=== PATIENT | female | born 1945 | race Caucasian/White ===

== ENCOUNTER → 2018-02-14 | Outpatient (CLI) | payer MEDICARE, OTHER ==
[~2018-02-14] MED LIST: ASPI81CH PO; BENA20 PO; CARV6.25 PO; FERR160 PO; FURO40 PO; GABA600 PO; HYDACE7.5 PO; HYDPAM25 PO; MOME.1TO TOP; NAPR500ERA PO; NITR.6SL SL; OMEP20ER PO; TEMA30 PO
== END | disposition home or self-care (01) ==
LOC: LAB SHORT 15:00 → LAB 15:00
DX: I83.12 Varicose veins of left lower extremity with inflammation (principal)
CPT/HCPCS: 87070; 87077; 87147; 87186; 87205

== ENCOUNTER 2018-05-13 02:41 | Emergency (ER) | payer MEDICARE, OTHER ==
[~2018-05-13] VITALS: Ht 152.4 cm; Wt 129.3 kg
== END 2018-05-13 06:52 | disposition home or self-care (01) ==
LOC: ER 02:41
DX: S01.01XA Laceration without foreign body of scalp, initial encounter (principal); W01.198A Fall on same level from slipping, tripping and stumbling with subsequent striking against other object, initial encounter; Z88.5 Allergy status to narcotic agent; Z79.899 Other long term (current) drug therapy; Z79.891 Long term (current) use of opiate analgesic
CPT/HCPCS: 12002; 70450; 90471; 90714; 99284-25

== ENCOUNTER 2018-08-29 17:12 | Emergency (ER) | payer MEDICARE, OTHER ==
[~2018-08-29] VITALS: Ht 152.4 cm; Wt 117.9 kg
[2018-08-29 18:00] LABS: BASOPHILS ABSOLUTE AUTO 0.04 K/mm3 (0.00-0.23); BASOPHILS PERCENT AUTO 0 % (0-2); EOSINOPHILS ABSOLUTE AUTO 0.08 K/mm3 (0.00-0.68); EOSINOPHILS PERCENT AUTO 1 % (0-6); Hematocrit 37.1 % (33.0-51.0); Hemoglobin 11.4 g/dL (11.5-16.0); IMMATURE GRAN ABSOLUTE AUTO 0.04 K/mm3 (0.00-0.10); IMMATURE GRAN PERCENT AUTO 0 % (0-1); LYMPHOCYTES ABSOLUTE AUTO 1.59 K/mm3 (0.84-5.20); LYMPHOCYTES PERCENT AUTO 17 % (21-46); MONOCYTES ABSOLUTE AUTO 0.66 K/mm3 (0.16-1.47); MONOCYTES PERCENT AUTO 7 % (4-13); Mean Corpuscular HGB 26.6 pg (26.0-34.0); Mean Corpuscular HGB Conc 30.7 g/dL (31.5-36.5); Mean Corpuscular Volume 87 fL (80-100); NEUTROPHILS ABSOLUTE AUTO 7.23 K/mm3 (1.96-9.15); NEUTROPHILS PERCENT AUTO 75 % (41-73); Platelet Count 342 K/mm3 (150-400); RDW Coefficient Variation 15.5 % (11.7-14.2); RDW Standard Deviation 49.1 fL (35.1-46.3); Red Blood Cell Count 4.29 M/mm3 (3.80-5.20); White Blood Cell Count 9.64 K/mm3 (4.00-11.30)
[2018-08-29 18:20] LABS: Troponin I <0.015 ng/mL (0.000-0.040)
[2018-08-29 18:21] LABS: Alanine Aminotransfer (ALT/SGP 35 U/L (12-78); Albumin/Globulin Ratio 0.6 (0.8-1.8); Alk Phos 134 U/L (50-136); Anion Gap 4 mmol/L (6-16); Aspartate Aminotrans (AST/SGOT 43 U/L (12-37); Bilirubin, Total 0.6 mg/dL (0.1-1.0); Blood Urea Nitrogen 18 mg/dL (8-24); Bun/Creatinine Ratio 16.7 (12.0-20.0); CO2, Blood 34 mmol/L (21-32); Calcium, Blood 8.7 mg/dL (8.5-10.1); Chloride, Blood 99 mmol/L (98-108); Creatinine, Blood 1.08 mg/dL (0.40-1.00); Glomerular Filtration Rate 53 (60-); Glucose, Blood 159 mg/dL (70-99); Sodium, Blood 137 mmol/L (136-145)
[2018-08-29] MEDS ORDERED: TORS10 (19:01)
[2018-08-29] MEDS ORDERED: BENZ100A PO (19:41)
== END 2018-08-29 20:07 | disposition home or self-care (01) ==
LOC: ER 17:12
PROVIDERS: Physician Assistant
DX: R07.9 Chest pain, unspecified (principal); R05 Cough; Z88.5 Allergy status to narcotic agent; Z79.899 Other long term (current) drug therapy
CPT/HCPCS: 36415; 71046; 80053; 83880; 84484; 85025; 93005; 93010; 96374; 99285-25; J1885

== ENCOUNTER → 2019-05-01 | Outpatient (CLI) | payer MEDICARE, OTHER, SELFPAY ==
[~2019-05-01] MED LIST changes: +BENZ100A PO; +TORS10
== END | disposition home or self-care (01) ==
LOC: LAB SHORT 14:30 → LAB 14:30
DX: L03.116 Cellulitis of left lower limb (principal)
CPT/HCPCS: 87070; 87205

== ENCOUNTER 2019-07-22 16:38 | Inpatient (IN) | payer MEDICARE, OTHER ==
[~2019-07-22] VITALS: Ht 149.9 cm; Wt 102.0 kg
[2019-07-22 18:01] LABS: BASOPHILS ABSOLUTE AUTO 0.05 K/mm3 (0.00-0.23); BASOPHILS PERCENT AUTO 0 % (0-2); EOSINOPHILS ABSOLUTE AUTO 0.05 K/mm3 (0.00-0.68); EOSINOPHILS PERCENT AUTO 0 % (0-6); Hematocrit 41.1 % (33.0-51.0); Hemoglobin 13.1 g/dL (11.5-16.0); IMMATURE GRAN ABSOLUTE AUTO 0.11 K/mm3 (0.00-0.10); IMMATURE GRAN PERCENT AUTO 1 % (0-1); LYMPHOCYTES ABSOLUTE AUTO 1.93 K/mm3 (0.84-5.20); LYMPHOCYTES PERCENT AUTO 10 % (21-46); MONOCYTES ABSOLUTE AUTO 1.05 K/mm3 (0.16-1.47); MONOCYTES PERCENT AUTO 5 % (4-13); Mean Corpuscular HGB Conc 31.9 g/dL (31.5-36.5); Mean Corpuscular Volume 82 fL (80-100); Mean Platelet Volume 9.8 fL (9.1-12.4); NEUTROPHILS ABSOLUTE AUTO 16.62 K/mm3 (1.96-9.15); NEUTROPHILS PERCENT AUTO 84 % (41-73); Platelet Count 548 K/mm3 (150-400); RDW Coefficient Variation 17.2 % (11.7-14.2); RDW Standard Deviation 49.3 fL (35.1-46.3); Red Blood Cell Count 5.03 M/mm3 (3.80-5.20); White Blood Cell Count 19.81 K/mm3 (4.00-11.30)
[2019-07-22 18:22] LABS: Alanine Aminotransfer (ALT/SGP 13 U/L (12-78); Albumin, Blood 3.1 g/dL (3.4-5.0); Albumin/Globulin Ratio 0.5 (0.8-1.8); Alk Phos 107 U/L (50-136); Anion Gap 10 mmol/L (6-16); Aspartate Aminotrans (AST/SGOT 8 U/L (12-37); Bilirubin, Total 0.8 mg/dL (0.1-1.0); Blood Urea Nitrogen 130 mg/dL (8-24); Bun/Creatinine Ratio 47.3 (12.0-20.0); CO2, Blood 19 mmol/L (21-32); Calcium, Blood 9.7 mg/dL (8.5-10.1); Chloride, Blood 98 mmol/L (98-108); Creatinine, Blood 2.75 mg/dL (0.40-1.00); Globulin, Blood 5.9 g/dL (2.2-4.0); Glomerular Filtration Rate 18 (60-); Glucose, Blood 161 mg/dL (70-99); Potassium, Blood 5.3 mmol/L (3.5-5.5); Sodium, Blood 127 mmol/L (136-145); Troponin I <0.015 ng/mL (0.000-0.040)
[2019-07-22] MEDS ORDERED: HYDROCODONE-AC1 EAC1 PO (22:26)
[2019-07-22] MEDS ORDERED: HYDHCL25 PO (22:26)
[2019-07-22] MEDS ORDERED: Bumetanide2 MG PO (22:26)
[2019-07-23 00:09] LABS: Source, Urine Clean Catch
[2019-07-23 00:18] LABS: Appearance, Urine Turbid (Clear); Bilirubin, Urine Neg (Neg); Blood, Urine 3+ (Neg); Color, Urine Yellow (P-Yellow); Glucose Qualitative, Urine Neg (Neg); Ketones, Urine 1+ (Neg); Leukocyte Esterase, Urine 3+ (Neg); Nitrite, Urine Neg (Neg); Protein, Urine 2+ (Neg); Urobilinogen, Urine NORM (Normal)
[2019-07-23 00:31] LABS: Bacteria Many /hpf; Red Blood Cells, Urine 0-2 /hpf (0-2); Squamous Epithelial Cells Not Seen /hpf (Few); White Blood Cells, Urine TNTC /hpf (0-5)
[2019-07-23] MEDS ORDERED: ELIQUIS5 MG PO (01:44)
[2019-07-23] MEDS ORDERED: CARV6.25 PO (01:44)
--- NOTE | 2019-07-23 01:57 | NUR ---
REPORT RECIEVED FROM CHEN JOHNSON RN AT 0145 AND AWAITING PT T/F TO ROOM 308.
--- NOTE | 2019-07-23 02:10 | NUR ---
PT T/F TO ROOM 308 AT 0200 VIA [employer]. SHE'S A/OX4 AND WAS ORIENTED TO ROOM AND CALL SYSTEM. PT ADMITTED FOR BLE CELLULITIS R/T CHRONIC LYMPHEDEMA. SKIN CARE PROVIDED TO LEGS, PANNUS, DYLAN AREA, BUTTOCKS AND SKIN FOLDS. PHOTOS COMPLETED OF ALL SKIN ISSUES. PT CONT'S TO C/O BLE PAIN, WILL MEDICATE PRN. OSEGUERA WAS PLACED IN ER AND IS PATENT/DRAINING. IV ABX ARE INFUSING. WCTM AND MEDICATE PRN.
[2019-07-23] MEDS ORDERED: POTA10T PO (02:46)
[2019-07-23 04:56] LABS: BASOPHILS ABSOLUTE AUTO 0.04 K/mm3 (0.00-0.23); BASOPHILS PERCENT AUTO 0 % (0-2); EOSINOPHILS ABSOLUTE AUTO 0.05 K/mm3 (0.00-0.68); EOSINOPHILS PERCENT AUTO 0 % (0-6); Hematocrit 38.5 % (33.0-51.0); Hemoglobin 12.2 g/dL (11.5-16.0); IMMATURE GRAN ABSOLUTE AUTO 0.13 K/mm3 (0.00-0.10); IMMATURE GRAN PERCENT AUTO 1 % (0-1); LYMPHOCYTES ABSOLUTE AUTO 1.42 K/mm3 (0.84-5.20); LYMPHOCYTES PERCENT AUTO 7 % (21-46); MONOCYTES ABSOLUTE AUTO 1.09 K/mm3 (0.16-1.47); MONOCYTES PERCENT AUTO 6 % (4-13); Mean Corpuscular HGB Conc 31.7 g/dL (31.5-36.5); Mean Corpuscular Volume 82 fL (80-100); Mean Platelet Volume 9.8 fL (9.1-12.4); NEUTROPHILS ABSOLUTE AUTO 16.82 K/mm3 (1.96-9.15); NEUTROPHILS PERCENT AUTO 86 % (41-73); Platelet Count 466 K/mm3 (150-400); RDW Coefficient Variation 17.1 % (11.7-14.2); RDW Standard Deviation 48.6 fL (35.1-46.3); White Blood Cell Count 19.55 K/mm3 (4.00-11.30)
[2019-07-23 05:00] LABS: Hematocrit 38.7 % (33.0-51.0); Hemoglobin 12.2 g/dL (11.5-16.0)
[2019-07-23 05:18] LABS: Bun/Creatinine Ratio 46.8 (12.0-20.0); Calcium, Blood 9.3 mg/dL (8.5-10.1); Creatinine, Blood 2.8 mg/dL (0.40-1.00); Potassium, Blood 4.6 mmol/L (3.5-5.5)
[2019-07-23 05:27] LABS: Magnesium, Blood 2.2 mg/dL (1.6-2.4)
[2019-07-23 05:31] LABS: Albumin, Blood 2.8 g/dL (3.4-5.0); Anion Gap 13 mmol/L (6-16); Blood Urea Nitrogen 130 mg/dL (8-24); Bun/Creatinine Ratio 46.4 (12.0-20.0); CO2, Blood 19 mmol/L (21-32); Calcium, Blood 9.4 mg/dL (8.5-10.1); Chloride, Blood 100 mmol/L (98-108); Glomerular Filtration Rate 18 (60-); Glucose, Blood 143 mg/dL (70-99); Phosphorus, Blood 5.7 mg/dL (2.5-4.9); Potassium, Blood 4.6 mmol/L (3.5-5.5); Sodium, Blood 132 mmol/L (136-145)
--- NOTE | 2019-07-23 06:19 | NUR ---
PT T/F TO ROOM 308 AT 0200 VIA [employer]. SHE'S A/OX4 AND WAS ORIENTED TO ROOM AND CALL SYSTEM. PT ADMITTED FOR BLE CELLULITIS R/T CHRONIC LYMPHEDEMA. SKIN CARE PROVIDED TO LEGS, PANNUS, DYLAN AREA, BUTTOCKS AND SKIN FOLDS. PHOTOS COMPLETED OF ALL SKIN ISSUES. PT CONT'S TO C/O BLE PAIN, WILL MEDICATE PRN. OSEGUERA WAS PLACED IN ER AND IS PATENT/DRAINING. IV ABX ARE INFUSING. WCTM AND MEDICATE PRN.
[2019-07-23] MEDS ORDERED: METO5 PO (06:42)
[2019-07-23] MEDS ORDERED: BENZ100A PO (06:43)
[2019-07-23] MEDS ORDERED: BETA.05TCA TOP (06:45)
[2019-07-23] MEDS ORDERED: FOLI1 PO (06:45)
--- NOTE | 2019-07-23 06:45 | NUR ---
SUMMARY: A/OX4, CALLS APPROPRIATELY AND SPECIFIES NEEDS. BLE'S ARE RED, HOT, PEELING, WEAPING, SCABBED AND GROSSLY EDEMATOUS FROM CELLULITIS. LEGS WERE ELEVATED W/DRY CHUCKS IN PLACE BUT THEY REMAIN VERY PAINFUL DESPITE BEING MEDICATED W/TYLENOL, FENTANYL AND NORCO PRN. IV ABX RECIEVED THEN SL. OSEGUERA WAS PLACED IN ER AND IS PATENT/DRAINING TURBID OP, UTI LIKELY. IS CONSULTING W/PLANS TO [facility]. RENAL U/S RX'D AND SCHEDULED BTWN [id number]. PT WAS REPOSITIONED FOR FURTHER SBD PREVENTION. SHE HAS EXCORIATION, REDNESS AND BROKEN SKIN TO BUTTOCKS AND SKIN CREASES. MEPILEX APPLIED. SHE ALSO HAS YEAST TO PANNUS, GROIN AND DYLAN AREA. SKIN WAS CLEANSED AND DOCUMENTED, SEE PHOTOS FOR DETAILS. PT REPORT NUMBNESS TO FINGERS BUT SENSATION AND CAP REFILL WNL TO BLE'S. NO ACUTE CHANGES, VSS/AFEBRILE. WCTM AND REPORT TO DAY RN.
--- NOTE | 2019-07-23 14:55 | NUR ---
PT GAVE CONSENT FOR STUDENT NURSE TO CARE FOR HER ON 07/24/19 [id number]
--- NOTE | 2019-07-23 17:44 | NUR ---
SHIFT SUMMARY PT REPORTIN PAIN ALMOST CONSTANTLY WHEN AWAKE. REPORTS BACK OF LEGS EXTREMELY PAINFUL ESPECIALLY LAYING AGAINST THE BED. SEROUS DRAINAGE FROM LEGS. REDNESS AND WARMTH TO BOTH LEGS WITH R WORSE THAN L. TRIED TO SIT ON SIDE OF BED THIS MORNING WITH TOO MUCH PAIN. AT BEDSIDE THROUG AFTERNOON. POWDER APPLIED TO YEAST UNDER PANNUS. DRESSING IN PLACE TO COCCYX.
--- NOTE | 2019-07-23 22:40 | NUR ---
PATIENT REPORTED BACK OF CALVES PAIN AND NORCO ONE TAB GIVEN PER EMAR. CALL LIGHT IN REACH.
--- NOTE | 2019-07-24 04:08 | NUR ---
SHIFT SUMMARY PATIENT HAD NO ACUTE CHANGES OBSERVED. AXOX 4 AND BEDFAST. FAMILY PRESENT AT SHIFT CHANGE. REPORTED PAIN IN BACK OF CALVES AND NORCO ONE TAB GIVEN PER EMAR. PATIENT ABLE TO GO BACK TO SLEEP. OSEGUERA PATENT AND DRAINIG. DENIES SOB AND N/V. PIV REMAINS INTACT. VSS/AFBERILE. CALL LIGHT IN REACH. BED IN LOWEST POSITION. WILL CONTINUE TO MONITOR UNTIL DAY SHIFT NURSE ASSUMES CARE.
[2019-07-24 06:54] LABS: Albumin, Blood 2.4 g/dL (3.4-5.0); Anion Gap 11 mmol/L (6-16); Blood Urea Nitrogen 119 mg/dL (8-24); Bun/Creatinine Ratio 50.6 (12.0-20.0); CO2, Blood 23 mmol/L (21-32); Calcium, Blood 8.8 mg/dL (8.5-10.1); Chloride, Blood 102 mmol/L (98-108); Creatinine, Blood 2.35 mg/dL (0.40-1.00); Glomerular Filtration Rate 21 (60-); Glucose, Blood 133 mg/dL (70-99); Magnesium, Blood 2.1 mg/dL (1.6-2.4); Phosphorus, Blood 4.9 mg/dL (2.5-4.9); Potassium, Blood 3.6 mmol/L (3.5-5.5); Sodium, Blood 136 mmol/L (136-145)
--- NOTE | 2019-07-24 08:40 | NUR ---
Patient gave this student permission for care on 07/25/19 at 8:10 am.
--- NOTE | 2019-07-24 19:15 | NUR ---
shift summary pt with her eyes closed most of the day. awakens easily and chats with staff. bed bath given this evening and pt became extremely painful and now requesting pain meds. family at bedside visiting. pt hasn't been tearful until this evening after bedbath. swelling decreasing in both legs. dr. brown hasn't been here to see pt yet. pt reports the bottom of her r foot is more painful today.
[2019-07-25 05:35] LABS: BASOPHILS ABSOLUTE AUTO 0.04 K/mm3 (0.00-0.23); BASOPHILS PERCENT AUTO 0 % (0-2); EOSINOPHILS ABSOLUTE AUTO 0.16 K/mm3 (0.00-0.68); EOSINOPHILS PERCENT AUTO 1 % (0-6); Hematocrit 36.7 % (33.0-51.0); Hemoglobin 11.7 g/dL (11.5-16.0); IMMATURE GRAN ABSOLUTE AUTO 0.07 K/mm3 (0.00-0.10); IMMATURE GRAN PERCENT AUTO 1 % (0-1); LYMPHOCYTES PERCENT AUTO 10 % (21-46); MONOCYTES PERCENT AUTO 7 % (4-13); Mean Corpuscular HGB 25.9 pg (26.0-34.0); Mean Corpuscular HGB Conc 31.9 g/dL (31.5-36.5); Mean Corpuscular Volume 81 fL (80-100); Mean Platelet Volume 9.8 fL (9.1-12.4); NEUTROPHILS ABSOLUTE AUTO 11.85 K/mm3 (1.96-9.15); NEUTROPHILS PERCENT AUTO 82 % (41-73); Platelet Count 374 K/mm3 (150-400); RDW Coefficient Variation 16.9 % (11.7-14.2); RDW Standard Deviation 48.7 fL (35.1-46.3); Red Blood Cell Count 4.52 M/mm3 (3.80-5.20); White Blood Cell Count 14.52 K/mm3 (4.00-11.30)
[2019-07-25 05:57] LABS: Albumin, Blood 2.3 g/dL (3.4-5.0); Anion Gap 10 mmol/L (6-16); Blood Urea Nitrogen 105 mg/dL (8-24); Bun/Creatinine Ratio 59.3 (12.0-20.0); CO2, Blood 24 mmol/L (21-32); Calcium, Blood 8.8 mg/dL (8.5-10.1); Chloride, Blood 102 mmol/L (98-108); Creatinine, Blood 1.77 mg/dL (0.40-1.00); Glomerular Filtration Rate 30 (60-); Glucose, Blood 176 mg/dL (70-99); Magnesium, Blood 1.9 mg/dL (1.6-2.4); Phosphorus, Blood 3.3 mg/dL (2.5-4.9); Sodium, Blood 136 mmol/L (136-145)
--- NOTE | 2019-07-25 06:33 | NUR ---
SHIFT SUMMARY PT IS A 74 Y/O FEMALE, ADMITTED FOR BLE CELLULITIS. SHE IS A&O X 4, AND BEDREST/WHEELCHAIR BOUND AT BASELINE. OSEGUERA CATHETER IS IN PLACE, PATENT AND DRAINING. VITAL SIGNS STABLE. SHE WAS MEDICATED TWICE FOR PAIN WITH PRN HYDROCODONE. NO COMPLAINTS OF NAUSEA OR SOB. PT WAS SEEN BY DR VILA DURING THE EVENING, WHO STATED HE WANTED TO DO FURTHER IMAGING STUDIES BEFORE PLANNING ANY SURGICAL INTERVENTIONS. NO ACUTE CHANGES IN PT CONDITION NOTED. WILL CONTINUE TO MONITOR AND TREAT PER EMAR UNTIL HAND OFF TO DAY SHIFT RN.
--- NOTE | 2019-07-25 18:43 | NUR ---
SHIFT SUMMARY MEDICATED FOR PAIN NEEDED. LE WOUNDS WRAPPED WITH NONADHESIVE DRESSING, KERLEX AND CATHY WRAP TO KEEP DRESSING ON. LE'S ELEVATED ON PILLOWS AND HEELS REAISED OFF BED. HEELS GETTING SOFT TO PALPATION AND PT COMPLAINING OF FOOT PAIN BUT PRIMARILY IN HEELS. PAIN STOPPED AFTER HEELS ELEVATED. FAMILY IN TO VISIT THIS EVENING. PT EATS ONLY MINIMAL AMOUNTS OF FOOD SERVED TO HER.
[2019-07-26 05:11] LABS: Hematocrit 33.7 % (33.0-51.0); Hemoglobin 10.7 g/dL (11.5-16.0)
[2019-07-26 05:39] LABS: Anion Gap 8 mmol/L (6-16); Blood Urea Nitrogen 86 mg/dL (8-24); Bun/Creatinine Ratio 59.7 (12.0-20.0); CO2, Blood 24 mmol/L (21-32); Calcium, Blood 8.4 mg/dL (8.5-10.1); Chloride, Blood 101 mmol/L (98-108); Creatinine, Blood 1.44 mg/dL (0.40-1.00); Glomerular Filtration Rate 38 (60-); Glucose, Blood 123 mg/dL (70-99); Magnesium, Blood 1.7 mg/dL (1.6-2.4); Potassium, Blood 3.9 mmol/L (3.5-5.5); Sodium, Blood 133 mmol/L (136-145)
[2019-07-26 05:40] LABS: Phosphorus, Blood 2.6 mg/dL (2.5-4.9)
--- NOTE | 2019-07-26 06:31 | NUR ---
SHIFT SUMMARY PT IS A 74 Y/O FEMALE, ADMITTED FOR BLE CELLULITIS. SHE IS A&O X 3, AND ON BEDREST, WHEELCHAIR BOUND AT BASELINE. PT REPORTED PAIN THROUGH THE NIGHT IN HER BACK AND LEGS, AND WAS MEDICATED TWICE WITH PRN HYDROCODONE. NO COMPLAITNS OF NAUSEA OR SOB. VITAL SIGNS STABLE. PER DR MENDOZA, PT HAS BEEN PUT ON A 1L FLUID RESTRICTION. NO ACUTE CHANGES IN PT CONDITION NOTED. WILL CONTINUE TO MONITOR AND TREAT PER EMAR UNTIL HAND OFF TO DAY SHIFT RN.
--- NOTE | 2019-07-26 10:07 | NUR ---
pain went up rather than down due to being moved in bed to remove bp and change dressings on coccyx
[2019-07-26] MEDS ORDERED: ACET325 PO (12:35)
[2019-07-26] MEDS ORDERED: DOCU100 PO (12:36)
[2019-07-26] MEDS ORDERED: Vsl#3 Capsule1 EACH PO (12:37)
[2019-07-26] MEDS ORDERED: Pedi-Dri 100,0060 GM TOP (12:38)
[2019-07-26] MEDS ORDERED: SENN187 PO (12:39)
[2019-07-26] MEDS ORDERED: SPIR25 PO (12:39)
[2019-07-26] MEDS ORDERED: CEPH250A PO (12:40)
--- NOTE | 2019-07-26 15:34 | NUR ---
A+O, CALLED REPORT TO TU APONTE, REVIEWED MEDICATION AND DISCHARGE INSTRUCTIONS WITH PT, ESCORTED OUT ON [facility] BY MEDICAL TRANSPORT, FAMILY ACCOMPANING
== END 2019-07-26 15:32 | DRG 603 ==
LOC: ER 16:38 → MEDS 07-23 01:13 → ERHOLD 07-23 01:13 → MEDS 07-23 01:59
PROVIDERS: Internal Medicine; Internal Medicine Nephrology; Nurse Practitioner Acute Care; Physician Assistant; ADMIT Internal Medicine
DX: L03.115 Cellulitis of right lower limb (principal); B37.89 Other sites of candidiasis; N17.9 Acute kidney failure, unspecified; E87.1 Hypo-osmolality and hyponatremia; Z68.43 Body mass index [BMI] 50.0-59.9, adult; I82.4Z1 Acute embolism and thrombosis of unspecified deep veins of right distal lower extremity; I82.431 Acute embolism and thrombosis of right popliteal vein; N25.81 Secondary hyperparathyroidism of renal origin; N39.0 Urinary tract infection, site not specified; I12.9 Hypertensive chronic kidney disease with stage 1 through stage 4 chronic kidney disease, or unspecified chronic kidney disease; E11.22 Type 2 diabetes mellitus with diabetic chronic kidney disease; N18.3 Chronic kidney disease, stage 3 (moderate); Z86.718 Personal history of other venous thrombosis and embolism; G89.29 Other chronic pain; K21.9 Gastro-esophageal reflux disease without esophagitis; Z79.01 Long term (current) use of anticoagulants; E66.01 Morbid (severe) obesity due to excess calories; L03.116 Cellulitis of left lower limb; I89.0 Lymphedema, not elsewhere classified; M19.90 Unspecified osteoarthritis, unspecified site; Z99.3 Dependence on wheelchair; I87.2 Venous insufficiency (chronic) (peripheral); B96.20 Unspecified Escherichia coli [E. coli] as the cause of diseases classified elsewhere; E87.70 Fluid overload, unspecified; E83.39 Other disorders of phosphorus metabolism; E88.09 Other disorders of plasma-protein metabolism, not elsewhere classified; Z96.641 Presence of right artificial hip joint; D64.9 Anemia, unspecified; E87.6 Hypokalemia
CPT/HCPCS: 36415; 51702; 76770; 80048; 80053; 80069; 81001; 83605; 83735; 83880; 84484; 85014; 85018; 85025; 87040; 87077; 87086; 87186; 93005; 93010; 93970; 96365-59; 96367-59; 96375-59; 96376-59; 97110; 97162; 97167; 99285-25; A9270; A9270-GY; J0690; J0692; J2405; J2543; J3010; J3370; J7050

== ENCOUNTER → 2019-11-27 | Outpatient (CLI) | payer MEDICARE, OTHER ==
[~2019-11-27] MED LIST changes: +ACET325 PO; +BETA.05TCA TOP; +Bumetanide2 MG PO; +CEPH250A PO; +CIPR500 PO; +DOCU100 PO; +ELIQUIS5 MG PO; +FOLI1 PO; +HYDHCL25 PO; +HYDROCODONE-AC1 EAC8 PO; +HYDROXYZINE PAM25 MG PO; +METO5 PO; +POTA10T PO; +PREGABALIN75 MG PO; +PROBIOTIC250 MG PO; +Pedi-Dri 100,0060 GM TOP; +Potassium Chlo20 ME1 PO; +SENN187 PO; +SPIR25 PO; +TRAZ50 PO; +Vsl#3 Capsule1 EACH PO
[2019-11-27 15:17] LABS: Hematocrit 37.3 % (33.0-51.0); Hemoglobin 11.7 g/dL (11.5-16.0)
[2019-11-27 15:43] LABS: Alanine Aminotransfer (ALT/SGP 13 U/L (12-78); Albumin, Blood 2.7 g/dL (3.4-5.0); Albumin/Globulin Ratio 0.6 (0.8-1.8); Alk Phos 113 U/L (50-136); Anion Gap 5 mmol/L (6-16); Aspartate Aminotrans (AST/SGOT 14 U/L (12-37); Bilirubin, Direct 0.1 mg/dL (0.0-0.3); Bilirubin, Indirect 0.3 mg/dL (0.1-0.7); Bilirubin, Total 0.4 mg/dL (0.1-1.0); Blood Urea Nitrogen 44 mg/dL (8-24); CO2, Blood 32 mmol/L (21-32); Chloride, Blood 98 mmol/L (98-108); Globulin, Blood 4.6 g/dL (2.2-4.0); Glucose, Blood 99 mg/dL (70-99); Phosphorus, Blood 3.8 mg/dL (2.5-4.9); Potassium, Blood 3.9 mmol/L (3.5-5.5); Sodium, Blood 135 mmol/L (136-145); Total Protein, Blood 7.3 g/dL (6.4-8.2)
[2019-11-27 15:50] LABS: Bun/Creatinine Ratio 20.8 (12.0-20.0); Creatinine, Blood 2.12 mg/dL (0.40-1.00); Glomerular Filtration Rate 24 (60-)
== END | disposition home or self-care (01) ==
LOC: LAB SHORT 15:05 → LAB 15:05
PROVIDERS: Internal Medicine Nephrology
DX: N18.3 Chronic kidney disease, stage 3 (moderate) (principal); D63.1 Anemia in chronic kidney disease; N25.81 Secondary hyperparathyroidism of renal origin; E55.9 Vitamin D deficiency, unspecified; E78.00 Pure hypercholesterolemia, unspecified
CPT/HCPCS: 80053; 82248; 82306; 84100; 85014; 85018; 87070; 87075; 87076; 87077; 87147; 87186; 87205

== ENCOUNTER 2021-03-20 15:29 | Emergency (ER) | payer MEDICARE ==
[~2021-03-20] VITALS: Ht 149.9 cm; Wt 104.3 kg
[2021-03-20] MEDS ORDERED: Voltaren100 GM TOP (16:10)
== END 2021-03-20 16:19 | disposition home or self-care (01) ==
LOC: ER 15:29
DX: S63.501A Unspecified sprain of right wrist, initial encounter (principal); M19.031 Primary osteoarthritis, right wrist; E11.22 Type 2 diabetes mellitus with diabetic chronic kidney disease; N18.9 Chronic kidney disease, unspecified; D63.1 Anemia in chronic kidney disease; Z88.5 Allergy status to narcotic agent; Z79.899 Other long term (current) drug therapy; X58.XXXA Exposure to other specified factors, initial encounter
CPT/HCPCS: 73110; 99283-25; A9270

== ENCOUNTER 2022-04-17 03:19 | Emergency (ER) | payer MEDICARE ==
[~2022-04-17 03:19] MED LIST changes: +Voltaren100 GM TOP
== END 2022-04-17 05:36 | disposition home or self-care (01) ==
DX: S70.01XA Contusion of right hip, initial encounter (principal); E11.22 Type 2 diabetes mellitus with diabetic chronic kidney disease; N18.4 Chronic kidney disease, stage 4 (severe); W06.XXXA Fall from bed, initial encounter; Z88.5 Allergy status to narcotic agent; Z79.899 Other long term (current) drug therapy; Z79.01 Long term (current) use of anticoagulants

== ENCOUNTER → 2022-06-17 | Outpatient (CLI) | payer MEDICARE ==
[2022-06-17 18:06] LABS: BASOPHILS ABSOLUTE AUTO 0.05 K/mm3 (0.00-0.23); BASOPHILS PERCENT AUTO 1 % (0-2); EOSINOPHILS ABSOLUTE AUTO 0.08 K/mm3 (0.00-0.68); EOSINOPHILS PERCENT AUTO 1 % (0-6); Hematocrit 32.2 % (33.0-51.0); Hemoglobin 10.1 g/dL (11.5-16.0); IMMATURE GRAN ABSOLUTE AUTO 0.02 K/mm3 (0.00-0.10); IMMATURE GRAN PERCENT AUTO 0 % (0-1); LYMPHOCYTES ABSOLUTE AUTO 2.06 K/mm3 (0.84-5.20); LYMPHOCYTES PERCENT AUTO 22 % (21-46); MONOCYTES ABSOLUTE AUTO 0.62 K/mm3 (0.16-1.47); MONOCYTES PERCENT AUTO 7 % (4-13); Mean Corpuscular HGB 23.9 pg (26.0-34.0); Mean Corpuscular HGB Conc 31.4 g/dL (31.5-36.5); Mean Corpuscular Volume 76 fL (80-100); Mean Platelet Volume 11.1 fL (9.1-12.4); NEUTROPHILS ABSOLUTE AUTO 6.36 K/mm3 (1.96-9.15); NEUTROPHILS PERCENT AUTO 69 % (41-73); Platelet Count 349 K/mm3 (150-400); RDW Coefficient Variation 17.9 % (11.7-14.2); RDW Standard Deviation 48.8 fL (35.1-46.3); Red Blood Cell Count 4.23 M/mm3 (3.80-5.20); White Blood Cell Count 9.19 K/mm3 (4.00-11.30)
[2022-06-20 14:52] LABS: Albumin, Blood 2.9 g/dL (3.4-5.0); Albumin/Globulin Ratio 0.8 (0.8-1.8); Bilirubin, Total 0.2 mg/dL (0.1-1.0); Bun/Creatinine Ratio 22.4 (12.0-20.0); Calcium, Blood 7.4 mg/dL (8.5-10.1); Creatinine, Blood 2.01 mg/dL (0.40-1.00); Globulin, Blood 3.7 g/dL (2.2-4.0); Percent Saturation 6.5 % (15.0-50.0); Potassium, Blood 3.8 mmol/L (3.5-5.5); Thyroid Stimulating Hormone 1.6 uIU/mL (0.360-4.800); Total Protein, Blood 6.6 g/dL (6.4-8.2)
== END | disposition home or self-care (01) ==
LOC: LAB 17:23 → LAB SHORT 17:23
PROVIDERS: Internal Medicine
DX: I82.409 Acute embolism and thrombosis of unspecified deep veins of unspecified lower extremity (principal); N18.2 Chronic kidney disease, stage 2 (mild); E61.1 Iron deficiency; R53.83 Other fatigue; R60.0 Localized edema; R73.9 Hyperglycemia, unspecified
CPT/HCPCS: 80053; 82728; 83036; 83540; 83550; 84443; 85025

== ENCOUNTER 2023-01-28 01:34 | Emergency (ER) | payer MEDICARE ==
[~2023-01-28] VITALS: Ht 154.9 cm; Wt 117.9 kg
[2023-01-28] MEDS ORDERED: LIDO700A20 TOP (04:17)
[2023-01-28 04:18] VITALS: BP 124/72
== END 2023-01-28 04:25 | disposition home or self-care (01) ==
LOC: ER 01:34
DX: S80.01XA Contusion of right knee, initial encounter (principal); S80.11XA Contusion of right lower leg, initial encounter; W06.XXXA Fall from bed, initial encounter; Z88.5 Allergy status to narcotic agent; Z79.899 Other long term (current) drug therapy; E11.22 Type 2 diabetes mellitus with diabetic chronic kidney disease; N18.4 Chronic kidney disease, stage 4 (severe); D63.1 Anemia in chronic kidney disease; M19.90 Unspecified osteoarthritis, unspecified site; K21.9 Gastro-esophageal reflux disease without esophagitis
CPT/HCPCS: 73562-RT; 73590; 96374; 99284-25; A9270; J1170

== ENCOUNTER 2024-08-09 21:10 | Emergency (ER) | payer OTHER ==
[~2024-08-09] VITALS: Ht 162.6 cm; Wt 93.0 kg
[~2024-08-09 21:10] MED LIST changes: +LIDO700A20 TOP
[2024-08-09] MEDS ORDERED: Ketorolac Tromethamine 15mg Vial IV ONE (22:40)
[2024-08-09] MEDS ORDERED: TiZANidine HCl 4 MG Tab PO ONE (22:40)
[2024-08-09] MEDS ORDERED: Lidocaine 4% 1 Patch TOP ONE (22:40)
[2024-08-09 22:42] LABS: BASOPHILS ABSOLUTE AUTO 0.05 K/mm3 (0.00-0.23); BASOPHILS PERCENT AUTO 1 % (0-2); EOSINOPHILS PERCENT AUTO 1 % (0-6); Hematocrit 36.7 % (33.0-51.0); Hemoglobin 12.1 g/dL (11.5-16.0); IMMATURE GRAN ABSOLUTE AUTO 0.04 K/mm3 (0.00-0.10); IMMATURE GRAN PERCENT AUTO 1 % (0-1); LYMPHOCYTES ABSOLUTE AUTO 1.67 K/mm3 (0.84-5.20); LYMPHOCYTES PERCENT AUTO 21 % (21-46); MONOCYTES ABSOLUTE AUTO 0.62 K/mm3 (0.16-1.47); MONOCYTES PERCENT AUTO 8 % (4-13); Mean Corpuscular HGB 29.2 pg (26.0-34.0); Mean Corpuscular Volume 89 fL (80-100); Mean Platelet Volume 9.8 fL (9.1-12.4); NEUTROPHILS ABSOLUTE AUTO 5.48 K/mm3 (1.96-9.15); NEUTROPHILS PERCENT AUTO 69 % (41-73); Platelet Count 258 K/mm3 (150-400); RDW Coefficient Variation 14.1 % (11.7-14.2); RDW Standard Deviation 45.5 fL (35.1-46.3); Red Blood Cell Count 4.14 M/mm3 (3.80-5.20); White Blood Cell Count 7.96 K/mm3 (4.00-11.30)
[2024-08-09 22:55] LABS: Albumin, Blood 3.2 g/dL (3.4-5.0); Albumin/Globulin Ratio 0.9 (0.8-1.8); Bilirubin, Total 0.4 mg/dL (0.1-1.0); Bun/Creatinine Ratio 32.3 (12.0-20.0); Calcium, Blood 7.6 mg/dL (8.5-10.1); Creatinine, Blood 1.58 mg/dL (0.40-1.00); Globulin, Blood 3.7 g/dL (2.2-4.0); Potassium, Blood 4.8 mmol/L (3.5-5.5); Total Protein, Blood 6.9 g/dL (6.4-8.2)
[2024-08-09] MEDS ORDERED: LIDO700A20 TOP (23:41)
[2024-08-09 23:45] VITALS: BP 120/81
== END 2024-08-10 00:41 | disposition home or self-care (01) ==
LOC: ER 21:10
PROVIDERS: Physician Assistant
DX: M25.512 Pain in left shoulder (principal); E11.22 Type 2 diabetes mellitus with diabetic chronic kidney disease; N18.4 Chronic kidney disease, stage 4 (severe); M19.90 Unspecified osteoarthritis, unspecified site; K21.9 Gastro-esophageal reflux disease without esophagitis; Z79.899 Other long term (current) drug therapy; Z88.5 Allergy status to narcotic agent
CPT/HCPCS: 71046; 73030; 80053; 84484; 85025; 96374; 99283-25; A9270; J1885